=== PATIENT | female | born 1970 | race African-American/Black ===

== ENCOUNTER 2019-06-04 06:08 | Day surgery (SDC) | payer OTHER ==
[2019-06-03 17:51] VITALS: BMI 29.8
[2019-06-04] MEDS ORDERED: LIDOCAINE HCL/PF 2% SDV 5ML VIAL ONE (06:59)
[2019-06-04] MEDS ORDERED: DEXAMETHASONE SOD PHOSPHATE 4 MG/1 ML VIAL ONE (06:59)
[2019-06-04] MEDS ORDERED: MIDAZOLAM HCL 2 MG/2 ML SINGLE DOSE VIAL ONE (07:00)
[2019-06-04] MEDS ORDERED: PROPOFOL 20 ML ONE ×2 (07:00)
--- NOTE | 2019-06-04 07:47 | HP ---
History & Physical Update - History History: No Change - Physical Physical: No Change - Assessment Assessment: No Change - Plan Plan: No Change (Chart reviewed H&P consistent with 05/07/19 consent signed and witnessed)
[2019-06-04] MEDS ORDERED: oxyCODONE HCL 5 MG TABLET PO PRN (07:48)
[2019-06-04] MEDS ORDERED: ONDANSETRON 4 MG/2 ML VIAL IVPUSH PRN (07:48)
[2019-06-04] MEDS ORDERED: IBUPROFEN 800 MG/8 ML IJ IVPB PRN (07:48)
[2019-06-04] MEDS ORDERED: IBUPROFEN 600 MG TABLET (FP) PO PRN (07:48)
--- NOTE | 2019-06-04 07:49 | OP ---
Operative Note - Note: Operative Date: 06/04/19 Pre-Operative Diagnosis: 48yo P 3 with prior h/o Ovarian CA, Menorhagia, Submucosal fibroid Operation: Hysteroscopy/Myomectomy/D&C Findings: 2.5cm Stage 0 anterior wall fibroid Post-Operative Diagnosis: Same as Pre-op Surgeon: Leti Trevino Anesthesiologist/INSTRUMENT AND ELECTRICAL TECHNICIAN: Jaron Kenny Anesthesia: MAC Specimens Removed: Shavings of fibroid and Endometrial curettings Estimated Blood Loss (mls): 5 Drains & Tubes with Location: Fluid Defficit - 280cc Drains, Volume Out (mls): 10 Fluid Volume Replaced (mls): 700 Operative Report Dictated: Yes
[2019-06-04] MEDS ORDERED: VASOPRESSIN 20 UNITS/ML VIAL IV ONE (07:57)
[2019-06-04] MEDS ORDERED: ELECTROLYTE-148 SOLN 1,000 ML IV SCH (08:00)
[2019-06-04] MEDS ORDERED: LACTATED RINGERS SOLUTION 1,000 ML IV SCH (09:15)
[2019-06-04 09:59] VITALS: TEMP 97.4
[2019-06-04 14:03] VITALS: BP 134/78; PULSE 78
--- NOTE | 2019-06-04 14:08 | OP ---
DATE OF OPERATION: 06/04/2019 PREOPERATIVE DIAGNOSIS: A 48-year-old para 3 with prior ovarian cancer, menorrhagia, submucosal fibroid, multifibroid uterus. OPERATION: Hysteroscopy, myomectomy, dilation and curettage. FINDINGS: A 2.5-cm stage 0 anterior wall fibroid. POSTOPERATIVE DIAGNOSIS: A 48-year-old para 3 with prior ovarian cancer, menorrhagia, submucosal fibroid, multifibroid uterus. The fibroid fully resected. ANESTHESIOLOGIST: Jaron Kenny CRNA ANESTHESIA: MAC. SPECIMENS REMOVED: Shavings of the fibroid and endometrial curettings. DESCRIPTION OF THE OPERATIVE PROCEDURE: After assuring informed consent, patient was brought to the operating room where she was placed in dorsal lithotomy position. Perineum and vagina were prepped and draped in a sterile fashion. Walker retractors were placed vaginally, and anterior cervical lip was articulated with single-tooth tenaculum. Walker dilators were used to dilate cervix without any difficulty to accommodate 6.3-mm Symphion hysteroscope, which was introduced into the uterus without any difficulty with above findings. The resecting device was introduced through the Symphion hysteroscope operative channel. The fibroid was resected without any difficulty. Excellent hemostasis was noted. Endometrial cavity was found to be free of any foreign material. All instruments were removed from uterus, cervix, and vagina. The estimated blood loss 5 mL. Fluid deficit 280 mL. Patient drained 10 mL of urine at the beginning of the procedure and received 700 mL of IV fluids during the procedure. Instrument count and sponges were correct at the end of the procedure. Patient tolerated the procedure well and was brought to the recovery room, extubated in stable condition. Dalton [id number]
--- NOTE | 2019-06-05 17:37 | PATH ---
Surgical Pathology Report Patient Name: EMANUEL CHANG [facility]. Rec. #: [id number] /Age/Gender: 1970 (Age: 48) / F Account: [id number] Location: [facility] SURGICAL Taken: 06/04/2019 Received: 06/04/2019 Reported: 06/05/2019 Physicians: Leti Trevino M.D. Specimen(s) Received RESECTED FIBROID Clinical History Abnormal uterine and vaginal bleeding Final Diagnosis RESECTED FIBROID, HYSTEROSCOPIC MYOMECTOMY: 6 G, FRAGMENTS OF LEIOMYOMA AND PROLIFERATIVE ENDOMETRIUM. Electronically Signed Any Ashford M.D. Gross Description Received in formalin labeled "resected fibroids," is a 6 g, 5.7 x 4.8 x 0.4 cm aggregate of padilla portions of firm to rubbery tissue, consistent with morcellated fibroids. A international representative portion is submitted in 6 cassettes. DL/06/04/2019 saudi/06/04/2019
== END 2019-06-04 12:00 | disposition home or self-care (01) ==
LOC: JASU-SURG 06:08
PROVIDERS: ATTEND Obstetrics & Gynecology
PROC: 0UDB7ZX Extraction of Endometrium, Via Natural or Artificial Opening, Diagnostic (ICD-10-PCS; 2019-06-04)
PROC: 0UJD8ZZ Inspection of Uterus and Cervix, Via Natural or Artificial Opening Endoscopic (ICD-10-PCS; 2019-06-04)
PROC: 0UB98ZZ Excision of Uterus, Via Natural or Artificial Opening Endoscopic (ICD-10-PCS; principal; 2019-06-04 07:30)
DX: D25.9 Leiomyoma of uterus, unspecified (principal); N92.0 Excessive and frequent menstruation with regular cycle; Z85.43 Personal history of malignant neoplasm of ovary
CPT/HCPCS: 84703; 88305-TC; 94760